=== PATIENT | male | born 1955 | race African-American/Black ===

== ENCOUNTER 2022-04-03 16:07 | Emergency (ER) | payer OTHER ==
[~2022-04-03] VITALS: Ht 175.3 cm; Wt 64.4 kg
--- NOTE | 2022-04-03 16:07 | NUR ---
Alina polo in [facility] - 04/03/22 at 1823 by [email or web address] TRINA FROM [facility], TAKEN TO [facility] 3
--- NOTE | 2022-04-03 16:07 | NUR ---
TRINA FROM [facility], TAKEN TO ER BED 2
[2022-04-03 16:26] VITALS: BP 87/55
[2022-04-03 17:59] LABS: BASOPHILS # (AUTO) 0.1 K/uL (0.00-0.22); BASOPHILS % (AUTO) 0.8 % (0.0-2.0); EOSINOPHILS # (AUTO) 0.2 K/uL (0-0.4); EOSINOPHILS % (AUTO) 2.6 % (0.0-4.0); HEMATOCRIT 33.3 % (36-52); HEMOGLOBIN 10.7 g/dL (12.0-18.0); LYMPHOCYTES # (AUTO) 0.9 K/uL (2.0-11.5); LYMPHOCYTES % (AUTO) 12.7 % (20.5-51.1); MEAN CORPUSCULAR HEMOGLOBIN 28 pg (27-31); MEAN CORPUSCULAR HGB CONC 32 g/dL (33-37); MEAN CORPUSCULAR VOLUME 85.8 fL (80-94); MONOCYTES # (AUTO) 0.8 K/uL (0.8-1.0); MONOCYTES % (AUTO) 11.4 % (1.7-9.3); NEUTROPHILS % (AUTO) 72.5 % (42.2-75.2); PLATELET COUNT (AUTO) 580 K/uL (140-450); RED BLOOD CELL COUNT(AUTO) 3.88 MIL/uL (4.20-6.10); RED CELL DISTRIBUTION WIDTH 17.3 % (11.6-13.7); WHITE BLOOD COUNT (AUTO) 6.9 K/uL (4.8-10.8)
[2022-04-03 18:28] LABS: ALBUMIN 2.4 g/dL (3.4-5.0); ANION GAP 13.3 (8-16); ASPARTATE AMINOTRANSFERASE 14 U/L (15-37); CARBON DIOXIDE 27.9 mmol/L (21-32); CHLORIDE 98 mmol/L (98-107); CREATININE 1.4 mg/dL (0.6-1.3); GFR ARICAN-AMERICAN 65 mL/min (>90); GLUCOSE 92 mg/dL (74-106); POTASSIUM 4.2 mmol/L (3.5-5.1); SODIUM SERUM 135 mmol/L (136-145); TOTAL BILIRUBIN 0.4 mg/dL (0.0-1.0); UREA NITROGEN, BLOOD 19 mg/dL (7-18)
--- NOTE | 2022-04-03 19:45 | NUR ---
Patient appears to be resting comfortably in bed. Vital Signs within normal limits. Respirations even and unlabored. Waiting on transport
--- NOTE | 2022-04-03 21:20 | NUR ---
PATIENT PROVIDED FOOD UPON REQUEST
--- NOTE | 2022-04-04 00:43 | NUR ---
Patient appears to be resting comfortably in bed. Vital Signs within normal limits. Respirations even and unlabored. Waiting for transportation.
--- NOTE | 2022-04-04 03:12 | NUR ---
Patient appears to be resting comfortably in bed. Vital Signs within normal limits. Respirations even and unlabored.
--- NOTE | 2022-04-04 05:00 | NUR ---
Patient appears to be resting comfortably in bed. Respirations even and unlabored.
--- NOTE | 2022-04-04 08:53 | NUR ---
REPORT CALLED TO CHRISTOPHER READ SPOKE WITH CHIQUIS ENGLISH.
--- NOTE | 2022-04-04 09:06 | NUR ---
PT RESTING IN BED, OFFERED JELLO AND JUICE, PT DOES NOT WISH TO EAT AT THIS TIME.
--- NOTE | 2022-04-04 09:27 | NUR ---
SPOKE WITH GAUDENCIO DIAMOND SIZER AND SORTER REGARDING DIAGNOSIS AND RECOMENDATIONS FOR PATIENT.
--- NOTE | 2022-04-04 12:39 | NUR ---
Alina polo in [facility] - 04/04/22 at 1314 by [email or web address] JOVANY SWABBED AND WALKED TO LAB.
--- NOTE | 2022-04-04 13:04 | NUR ---
PT RESTING IN NO APPARENT DISTRESS, BREATHING EVEN AND UNLABORED, VSS, WILL CONTINUE TO MONITOR
[2022-04-04 14:20] VITALS: BP 91/51
--- NOTE | 2022-04-04 14:20 | NUR ---
Patient discharged with v/s stable. Written and verbal after care instructions given and explained. Patient verbalized understanding. Ambulance Transport with to [facility]. All questions addressed prior to discharge. Advised to follow up with PMD.
== END 2022-04-04 14:20 ==
LOC: MED 16:07
DX: R41.82 Altered mental status, unspecified (principal); J44.9 Chronic obstructive pulmonary disease, unspecified; Z88.0 Allergy status to penicillin; Z86.718 Personal history of other venous thrombosis and embolism
CPT/HCPCS: 36415; 70450; 80053; 83605; 84484; 85025; 93005; 99285

== ENCOUNTER 2022-05-05 14:13 | Inpatient (IN) | payer OTHER ==
[~2022-05-05] VITALS: Ht 170.2 cm; Wt 70.8 kg
[2022-05-05 14:26] VITALS: BP 92/60
--- NOTE | 2022-05-05 14:26 | NUR ---
67 y/o male biba from [facility] for abnormal labs. per amr, facility reports pt CEA and PSA were elevated with lack of appetite. a&ox3, unable to ambulate baseline. denies nausea, vomiting, diarrhea. skin is pink/warm/dry. a&o x3 to name, and place, gcs 13 baseline, does not ambulate. lungs clear bl, heart rate even and regular. pt denies dysuria, hematuria, urinary frequency or retention. pt denies any fever, cp, sob, or cough at this time. pt states pain is 0/10 at this time. patient positioned for comfort. hob elevated. bed down. ermd made aware of pt. pmh: copd, scoliosis, osteoarthritis, fx of first lumbar vertebra, muscel wastin atrophy, acute pancreatitis allergy: penicillin med: see list
--- NOTE | 2022-05-05 14:30 | NUR ---
unable to establish iv access, ermd notified at this time. us guided set up at bedside
[2022-05-05] MEDS ORDERED: NACL 0.9% 1,000 ML IV ONE ×2 (14:50→16:00)
--- NOTE | 2022-05-05 14:55 | NUR ---
X-Ray at bedside.
[2022-05-05 15:07] LABS: BASOPHILS % (AUTO) 0.4 % (0.0-2.0); EOSINOPHILS # (AUTO) 0.3 K/uL (0-0.4); HEMATOCRIT 29.2 % (36-52); HEMOGLOBIN 9.5 g/dL (12.0-18.0); LYMPHOCYTES # (AUTO) 0.6 K/uL (2.0-11.5); LYMPHOCYTES % (AUTO) 6.6 % (20.5-51.1); MEAN CORPUSCULAR HEMOGLOBIN 27 pg (27-31); MEAN CORPUSCULAR HGB CONC 33 g/dL (33-37); MEAN CORPUSCULAR VOLUME 82.2 fL (80-94); MONOCYTES % (AUTO) 10.6 % (1.7-9.3); NEUTROPHILS # (AUTO) 7.1 K/uL (1.8-7.7); NEUTROPHILS % (AUTO) 79.4 % (42.2-75.2); PLATELET COUNT (AUTO) 400 K/uL (140-450); RED BLOOD CELL COUNT(AUTO) 3.56 MIL/uL (4.20-6.10); RED CELL DISTRIBUTION WIDTH 17.1 % (11.6-13.7)
[2022-05-05 15:20] LABS: ANION GAP 16.5 (8-16); CARBON DIOXIDE 22.7 mmol/L (21-32); CREATININE 1.5 mg/dL (0.6-1.3); POTASSIUM 5.2 mmol/L (3.5-5.1)
[2022-05-05 15:22] LABS: PROTHROMBIN TIME 19.9 secs (10.8-13.4)
[2022-05-05 15:26] LABS: ALBUMIN 1.9 g/dL (3.4-5.0); TOTAL BILIRUBIN 0.4 mg/dL (0.0-1.0)
[2022-05-05] MEDS ORDERED: LEVOFLOXACIN 750 MG/D5W PREMIX 150 ML IV ONE (16:05)
[2022-05-05] MEDS ORDERED: ACET-9527 PO (16:14)
[2022-05-05] MEDS ORDERED: MULT-2171 PO (16:14)
[2022-05-05] MEDS ORDERED: ACET-1182 PO (16:14)
[2022-05-05] MEDS ORDERED: RIVA20TA PO (16:14)
[2022-05-05] MEDS ORDERED: SENN-212 PO (16:14)
[2022-05-05] MEDS ORDERED: MIRT-92 PO (16:14)
[2022-05-05] MEDS ORDERED: CHOL500040 PO (16:14)
[2022-05-05] MEDS ORDERED: ASCO500T95 PO (16:14)
[2022-05-05] MEDS ORDERED: POLY17PD46 PO (16:14)
[2022-05-05] MEDS ORDERED: DOCU-299 PO (16:14)
[2022-05-05] MEDS ORDERED: ZINC50TA76 PO (16:14)
[2022-05-05] MEDS ORDERED: guaiFENesin DM 200/20 MG-10 ML 10 ML UDC PO PRN (16:15)
[2022-05-05] MEDS ORDERED: POTASSIUM CHLORIDE 10 MEQ TABER PO PRN (16:15)
[2022-05-05] MEDS ORDERED: ACETAMINOPHEN 325 MG TAB PO PRN (16:15)
[2022-05-05] MEDS ORDERED: DOCUSATE SODIUM 100 MG GELCAP PO PRN (16:15)
[2022-05-05] MEDS ORDERED: ONDANSETRON 4 MG/2 ML VIAL IM/IVP PRN (16:15)
[2022-05-05] MEDS ORDERED: ALBUTEROL SULFATE/IPRATROPIU 3 ML SOL IH PRN (16:20)
[2022-05-05] MEDS: NACL 0.9% 1,000 ML IV SCH (16:20)
--- NOTE | 2022-05-05 17:25 | NUR ---
# 15 FR Urinary catheter inserted utilizing sterile technique. Immediate return of 20 ml urine noted. Urine sample collected and sent to lab. Pt tolerated procedure.
[2022-05-05 17:45] VITALS: BP 100/61
--- NOTE | 2022-05-05 17:45 | NUR ---
RECEIVED PT FROM ED VIA BLAISE, BEDSIDE REPORT FROM CHRISTIAN. PT AWAKE, ALERT, ABLE TO MAKE NEEDS KNOWN A/OX2 WITH PERIODS OF FORGETFULNESS. BREATHING SYMMETRICAL ON 2L NC. DENIES PAIN. PT CONTRACTED ON BILATERAL LOWER EXTREMITY. LAC 20G WITH NS AT 100CC/HR. PER REPORT ROCEPHIN AND LEVAQUIN NOT GIVEN. ROCEPHIN ADMINISTERED ORDERED. SISTER ZUHAIR AT BEDSIDE. NOTED PT WITH NON BLANCHABLE REDNESS ON RIGHT BUTTOCK, SKIN INTACT OTHERWISE. CALL LIGHT WITHIN REACH AND EDUCATED HOW TO USE CALL LIGHT. ALL SAFETY MEASURES IN PLACE. [id number]/61 PR94 RR16 TEMP98.0 O2 SAT 95%
[2022-05-05 17:51] LABS: APPEARANCE,URINE CLEAR (CLEAR); BILIRUBIN,URINE 2+ (NEGATIVE); BLOOD, URINE 1+ (NEGATIVE); COLOR,URINE YELLOW (YELLOW); LEUKOCYTE ESTERASE ,URINE TRACE (NEGATIVE); NITRITE, URINE NEGATIVE (NEGATIVE); UGLUCOSE NEGATIVE (NEGATIVE)
--- NOTE | 2022-05-05 18:02 | NUR ---
Patient will be admitted to care of Milady ALVAREZ. Admitted to Telemetry. Will go to room 112A. Belongings list completed. Report to Sandra SIM.
[2022-05-05 18:12] LABS: WBC,URINE 0-5 /HPF (0-5)
--- NOTE | 2022-05-05 19:30 | NUR ---
ENDORSED PT TO CABLE DISPATCHER NURSE FOR CONTINUITY OF CARE
[2022-05-05 19:41] LABS: CHOL/HDL RATIO 4.8 (1-4.5); FREE T4 (FREE THYROXINE) 1.18 ng/dL (0.76-1.46); MAGNESIUM 2.2 mg/dL (1.8-2.4); THYROID STIMULATING HORMONE 10.85 uIU/mL (0.34-3.74)
[2022-05-05 20:00] VITALS: BP 95/51
--- NOTE | 2022-05-05 20:00 | NUR ---
RECEIVED PATIENT FROM MORNING SHIFT NURSE. PATIENT IS AOX4 AND BED BOUND. NO S/S OF RESPIRATORY DISTRESS WAS NOTED. PATIENT HAS IV ON LEFT AC AT GAUGE 20 RUNNING WITH NS AT RATE OF 100 ML/HR. CALL LIGHT PLACED WITHIN REACH. ALL SAFETY MEASURES ARE IMPLEMENTED.
[2022-05-05 20:13] LABS: PHOSPHORUS 3.3 mg/dL (2.5-4.9)
[2022-05-05] MEDS: ALBUTEROL SULFATE/IPRATROPIU 3 ML SOL IH SCH (20:13)
[2022-05-06] VITALS: BP 108/73
[2022-05-06] MEDS ORDERED: levoFLOXacin 750 MG TAB ONE (00:55)
[2022-05-06] MEDS ORDERED: LEVOFLOXACIN 750 MG/D5W PREMIX 150 ML IV ONE (00:56)
--- NOTE | 2022-05-06 01:10 | NUR ---
LEVAQUIN TABLET NOT GIVEN, LEVAQUIN IVPB INSTEAD.
--- NOTE | 2022-05-06 02:00 | NUR ---
PATIENT INSERTED URINARY CONDOM CATHETER FOR URINE CULTURE SPECIMEN. CALL LIGHT PLACED WITHIN REACH. ALL SAFETY MEASURE WAS IMPLEMENTED.
[2022-05-06] MEDS: NACL 0.9% 1,000 ML IV SCH ×3 (02:15→22:15)
[2022-05-06 04:00] VITALS: BP_SYST 90; BP_SYST 98; BP_DIAS 56; BP_DIAS 65
--- NOTE | 2022-05-06 04:00 | NUR ---
PATIENT IS ON SLEEP, WITH 2L OF NC. CHEST RISE AND FALL WAS NOTED. CALL LIGHT WITHIN REACH. ALL SAFETY MEASURES IMPLEMENTED.
--- NOTE | 2022-05-06 07:18 | NUR ---
BEDSIDE ENDORSEMENT GIVEN TO AM NURSE FOR CONTINUITY OF CARE. PT STABLE.
[2022-05-06 07:22] LABS: BASOPHILS % (AUTO) 0.3 % (0.0-2.0); EOSINOPHILS # (AUTO) 0.3 K/uL (0-0.4); EOSINOPHILS % (AUTO) 2.9 % (0.0-4.0); HEMATOCRIT 25.8 % (36-52); HEMOGLOBIN 8.3 g/dL (12.0-18.0); LYMPHOCYTES # (AUTO) 0.6 K/uL (2.0-11.5); LYMPHOCYTES % (AUTO) 6.9 % (20.5-51.1); MEAN CORPUSCULAR HEMOGLOBIN 27 pg (27-31); MEAN CORPUSCULAR HGB CONC 32 g/dL (33-37); MEAN CORPUSCULAR VOLUME 82.4 fL (80-94); MONOCYTES # (AUTO) 0.9 K/uL (0.8-1.0); MONOCYTES % (AUTO) 10.1 % (1.7-9.3); NEUTROPHILS # (AUTO) 7.1 K/uL (1.8-7.7); NEUTROPHILS % (AUTO) 79.8 % (42.2-75.2); PLATELET COUNT (AUTO) 366 K/uL (140-450); RED BLOOD CELL COUNT(AUTO) 3.13 MIL/uL (4.20-6.10); RED CELL DISTRIBUTION WIDTH 17.3 % (11.6-13.7); WHITE BLOOD COUNT (AUTO) 8.9 K/uL (4.8-10.8)
--- NOTE | 2022-05-06 07:30 | NUR ---
RECEIVED REPORT FROM [facility] NURSE FOR CONTINUITY OF CARE. PATIENT IS AWAKE, ALERT AND VERBALLY RESPONSIVE. PT. IS O2 AT 2 L/NC. CHEST RISING AND FALLING WITH NO SOB, NO DISTRESS NOTED. ON DIE CUTTER DIAMOND. PT. HAS AN IV LAC WITH NS AT 100 CC/HR. ALL SAFETY MEASURES IN PLACE, CALL LIGHT WITHIN REACH. WILL CONTINUE TO MONITOR.
[2022-05-06 07:39] LABS: CREATININE 1.2 mg/dL (0.6-1.3); POTASSIUM 4.8 mmol/L (3.5-5.1)
[2022-05-06 07:51] LABS: ANION GAP 17.7 (8-16); CARBON DIOXIDE 20.1 mmol/L (21-32)
[2022-05-06 08:00] VITALS: BP 110/59
[2022-05-06] MEDS: ALBUTEROL SULFATE/IPRATROPIU 3 ML SOL IH SCH ×3 (08:00→19:38)
[2022-05-06 08:08] LABS: T4 (THYROXINE) 7.5 ug/dL (4.5-12.0)
[2022-05-06] MEDS: PANTOPRAZOLE 40 MG TABEC PO SCH (08:26)
--- NOTE | 2022-05-06 08:50 | NUR ---
PERI MEDICATION ADMINISTERED PER MD ORDER BY SHIVAM SIM. PT EDUCATED ON IMPORTANCE OF KEEPING NASAL CANNULA ON. IV PATENT RUNNING NS @100. ASSESSMENT COMPLETED. NO S/S OF DISTRESS. NO URINE OUTPUT AT THIS TIME, CONDEMN CATH ON. ALL SAFETY MEASURES IN PLACE, CALL LIGHT WITHIN REACH. WILL CONTINUE TO MONITOR.
--- NOTE | 2022-05-06 09:00 | NUR ---
ALL AM MEDS WAS GIVEN ORDERED AND WELL TAKEN. PT. IS AWAKE, ABLE TO FOLLOW COMMAND, BREATH SOUNDS CLEAR ON ALL LUNG [place]. ABD IS SOFT AND NON-DISTENDED WITH HYPOACTIVE BOWEL SOUNDS NOTED ON ALL 4 QUADRANTS. CONT. ON 02 AT 2 L/NC. FAMILY MEMBER IS AT BEDSIDE AND VERY SUPPORTIVE. IN STABLE CONDITION.
--- NOTE | 2022-05-06 09:06 | NUR ---
PATIENT HAS BEEN SCREENED AND CATEGORIZED HIGH NUTRITION RISK. PATIENT WILL BE SEEN WITHIN 1-2 DAYS OF ADMISSION. REFERRAL RECEIVED FOR REFUSE TO EAT OVER THREE DAYS, UNINTENTIONAL WEIGHT LOSS AND DECREASED APPETITE AMY [address]
--- NOTE | 2022-05-06 10:00 | NUR ---
DR. Dago RAYMOND CAME SEEN AND EXAMINED THE PATIENT WITH NEW ORDER RECEIVED AND CARRIED OUT. SISTER ZUHAIR TALKED TO DR. Dago RAYMOND THIS MORNING REGARDING PATIENT LATEST CONDITIONS.
[2022-05-06] MEDS: LEVOTHYROXINE SODIUM 100 MCG VIAL IV SCH (11:08)
[2022-05-06 12:00] VITALS: BP 94/60
--- NOTE | 2022-05-06 13:34 | NUR ---
DR RAYMOND REQUESTED CONSENT FOR CONTRAST TO BE FAXED, CONSENT FORM HAS BEEN FAXED TO HIS OFFICE. PENDING SIGNATURE.
--- NOTE | 2022-05-06 13:46 | NUR ---
ASSESSED IV DUE TO IV PUMP BEEPING. IV IS PATENT AND INTACT, NEW IV FLUIDS HAVE BEEN STARTED. REASSESSED BLOOD PRESSURE. PT AT BASELINE.
--- NOTE | 2022-05-06 14:30 | NUR ---
RESENT CONSENT FORM TO DR YOLY RAYMOND, COMPLETE CONFIRMATION OBTAINED OF FORM BEING SENT AND PLACED IN CHART. PENDING DR RAYMOND FAX
--- NOTE | 2022-05-06 14:40 | NUR ---
05/06/22 RD INITIAL ASSESSMENT COMPLETED PLEASE REFER TO NUTRITION ASSESSMENT UNDER CARE ACTIVITY FOR ESTIMATED NUTRITIONAL NEEDS. 1. RECOMMEND MECHANICAL SOFT DIET 2. RECOMMEND ENSURE STRAWBERRY TID PER RD PROTOCOL 3. MONITOR PO INTAKE 4. RD TO FOLLOW-UP 2-3 DAYS, HIGH RISK AMY [address]
[2022-05-06 16:00] VITALS: BP 97/68
--- NOTE | 2022-05-06 16:39 | NUR ---
DC PLANNING SW ATTEMPTED TO MEET WITH PATIENT AT BEDSIDE TO GATHER COLLATERAL INFORMATION HOWEVER, PATIENT WAS IN PAIN. RN REVIEW CAME TO CHANGE PATIENTS POSITION. PATIENT PROVIDED SW WITH PERMISSION TO CALL SISTER TO GATHER COLLATERAL INFORMATION. SW ATTEMPTED TO CONTACT PATIENTS SISTER, ZUHAIR ROSARIO, HOWEVER WAS UNSUCCESSFUL. SW TO FOLLOW UP. Addendum: 05/07/22 at 1553 by Dahlia BLANKENSHIP LATE ENTRY PATIENT IS A 67 YR OLD MALE ADMITTED FROM [facility] WITH DECREASED PO INTAKE AND WEIGHT LOSS FOR 1 MONTH. SW MET WITH PATIENT AT BEDSIDE TO GATHER COLLATERAL INFORMATION. PATIENT IDENTIFIED LIVING AT THE ADDRESS LISTED, [facility]. PATIENT REPORTED EMERGENCY CONTACT ZUHAIR ROSARIO (SISTER)[phone]. PATIENT DECLINED HAVING AD IN PLACE AND DECLINED PACKET OFFERED BY SW. RN REVIEW CAME TO OBSERVE PATIENT, PATIENT HAD TO BE SWITCHED SIDES AND WAS IN PAIN. PATIENT PROVIDED SW PERMISSION TO CONTACT SISTER TO GATHER COLLATERAL INFORMATION HE WAS IN PAIN. SW ATTEMPTED TO OUTREACH TO SISTER, HOWEVER, WAS UNSUCCESSFUL AT REACHING. SW GATHERED COLLATERAL INFORMATION FROM . CM CONFIRMED THAT PATIENT IS IN TOTAL CARE WITH [facility]. PATIENTS SISTER AND MOTHER ARE HIGHLY INVOLVED IN PATIENTS CARE. PATIENT IS PRIMARILY BED BOUND AND PATIENT REQUIRES ASSISTANCE WITH ALL ADL'S. REPORTS THAT SISTER REPORTED PATIENT HAS LOST A SIGNIFICANT AMOUNT OF WEIGHT 20-30 POUNDS WITHIN THIS LAST MONTH TENTATIVE PLAN IS FOR PATIENT TO RETURN TO [facility] ONCE MEDICALLY STABLE. SW TO FOLLOW NEEDED.
--- NOTE | 2022-05-06 17:21 | NUR ---
PT HAS BEEN TAKEN TO CT IN STABLE CONDITION WITH 2L NC.
--- NOTE | 2022-05-06 17:48 | NUR ---
RADIOLOGY CALLED STATING PT IS TOO CONTRACTED TO OBTAIN CT OF PELVIS AND ABDOMEN. WAS ABLE TO OBTAIN CT OF CHEST AND HEAD. PAGED AND NOTIFIED MD REGARDING THIS.
--- NOTE | 2022-05-06 18:03 | NUR ---
DR. RAYMOND STATED TO DO THE BEST YOU CAN DURING CT SCAN.
--- NOTE | 2022-05-06 18:12 | NUR ---
PT BROUGHT BACK FROM RADIOLOGY IN STABLE CONDITION, PLACED BACK ON 2L NC. PT HAS BEEN CLEANED AND REPOSITIONED. PT URINATED THROUGH CONDEMN CATH. SHEETS CHANGED AND NEW CONDEMN CATH PLACED. IV ABX ADMINISTERED PER MD ORDER. IV IS PATENT AND INTACT. ALL SAFETY MEASURES IN PLACE, CALL LIGHT WITHIN REACH, WILL CONTINUE TO MONITOR.
--- NOTE | 2022-05-06 18:49 | NUR ---
PATIENT REMAIN STABLE ENTIRE SHIFT. CONT. ON 02 AT 2 L/NC. NO S/SX OF PAIN OR DISCOMFORT. CT SCAN OF HEAD, CHEST, ABDOMEN AND PELVIS DONE. ALL NEEDS MET AND ANTICIPATED. ALL SAFETY MEASURES PLACE AT ALL TIMES. CALL LIGHT WITHIN REACH. BED IN LOW POSITION. WILL ENDORSE TO NOC NURSE.
--- NOTE | 2022-05-06 19:20 | NUR ---
RECEIVED REPORT FROM AM NURSE. PATIENT IS AWAKE, ALERT ON 2L NC TOLERATING WELL. NO SOB NOTED. RESPIRATION EVEN UNLABORED. NO COMPLAINTS OF PAIN. IVF NS INFUSING AT 100 ML/HR. ALL SAFETY MEASURES ARE IN PLACE. CALL LIGHT WITHIN REACH. WILL CONTINUE TO MONITOR PT.
[2022-05-06 20:00] VITALS: BP 97/52
--- NOTE | 2022-05-06 22:20 | NUR ---
IV LINE WAS INFILTRATED. STARTED A NEW PERIPHERAL IV ON THE LEFT UPPER ARM WITH GOOD BACK FLOW OF BLOOD.
--- NOTE | 2022-05-06 23:35 | NUR ---
ROUNDED PATIENT, PT SLEEPING. OBSERVED CHEST RISE AND FALL SYMMETRICALLY. NO ACUTE DISTRESS NOTED. SAFETY MEASURES IN PLACE. CALL LIGHT WITHIN REACH.
[2022-05-07] VITALS: BP 99/53
[2022-05-07] MEDS: NACL 0.9% 1,000 ML IV SCH ×2 (03:14→08:30)
[2022-05-07 04:00] VITALS: BP 93/51
--- NOTE | 2022-05-07 06:26 | NUR ---
PATIENT WAS STABLE DURING THE SHIFT. NO SOB. NO FEVER. WILL ENDORSE TO THE NEXT SHIFT
[2022-05-07 06:57] LABS: BASOPHILS % (AUTO) 0.4 % (0.0-2.0); EOSINOPHILS # (AUTO) 0.2 K/uL (0-0.4); HEMATOCRIT 27.7 % (36-52); HEMOGLOBIN 8.8 g/dL (12.0-18.0); LYMPHOCYTES # (AUTO) 0.6 K/uL (2.0-11.5); LYMPHOCYTES % (AUTO) 7.8 % (20.5-51.1); MEAN CORPUSCULAR HEMOGLOBIN 27 pg (27-31); MEAN CORPUSCULAR HGB CONC 32 g/dL (33-37); MEAN CORPUSCULAR VOLUME 84.2 fL (80-94); MONOCYTES # (AUTO) 0.7 K/uL (0.8-1.0); MONOCYTES % (AUTO) 8.8 % (1.7-9.3); NEUTROPHILS # (AUTO) 6.6 K/uL (1.8-7.7); PLATELET COUNT (AUTO) 295 K/uL (140-450); RED BLOOD CELL COUNT(AUTO) 3.29 MIL/uL (4.20-6.10); RED CELL DISTRIBUTION WIDTH 17.9 % (11.6-13.7); WHITE BLOOD COUNT (AUTO) 8.1 K/uL (4.8-10.8)
[2022-05-07] MEDS: ALBUTEROL SULFATE/IPRATROPIU 3 ML SOL IH SCH ×3 (07:00→22:16)
[2022-05-07 07:10] LABS: ANION GAP 20.9 (8-16); CARBON DIOXIDE 17.9 mmol/L (21-32); CREATININE 1.2 mg/dL (0.6-1.3); POTASSIUM 4.8 mmol/L (3.5-5.1)
--- NOTE | 2022-05-07 07:30 | NUR ---
RECEIVED REPORT FROM CAPTION WRITER NURSE FOR CONTINUITY OF CARE, PT IS RESTING IN BED ON 2L NC WITH CHEST RISING AND FALLING EVEN AND UNLABORED. PT ALERT AND VERBALLY RESPONSIVE. REPORTS ALL NEEDS ARE MET. ON TELE MONITOR SHOWING SINUS TACH OF 103. ALL SAFETY MEASURES IN PLACE, CALL LIGHT WITHIN REACH. WILL CONTINUE TO MONITOR.
[2022-05-07 08:00] VITALS: BP 92/62
--- NOTE | 2022-05-07 08:13 | NUR ---
PT BLOOD PRESSURE IS 92/67, NOTIFIED MD. ORDER OF 1L NS BOLUS ORDERED AND TO CONTINUE TO MONITOR. WILL FOLLOW ORDER OUT.
[2022-05-07] MEDS: LEVOTHYROXINE SODIUM 100 MCG VIAL IV SCH (08:29)
[2022-05-07] MEDS: PANTOPRAZOLE 40 MG TABEC PO SCH (08:29)
[2022-05-07] MEDS ORDERED: MIDODRINE 5 MG TAB PO SCH (09:00)
--- NOTE | 2022-05-07 09:14 | NUR ---
PT. WITH LOW DILAN SCALE AT HIGH RISK, CONTINUE TO FOLLOW PRESSURE INJURY PREVENTION INTERVENTIONS. -POSITIONING: TURN AND REPOSITION PATIENT Q 2H OR SOONER USE PILLOWS TO KEEP BONY PROMINENCES FROM DIRECT CONTACT WITH SURFACES USE REPOSITIONING WEDGES TO PROVIDE 30-DEGREE ANGLE FOR SIDE LYING POSITIONS OFFLOADING OR FOAM DRESSING TO ALL TUBING TO PREVENT MEDICAL DEVICES RELATED PRESSURE INJURY -RE-EVALUATING AND MANAGING INCONTINENCE MONITOR SKIN CONDITION DURING POSITION CHANGE DO NOT MASSAGE REDNESS, BONY PROMINENCES FREQUENT ELIZABETH-CARE AND PROVIDE BARRIER CREAMS PRN IF SOILING MOISTURE CONTROL BY OFFER BED SMILEY/URINAL /ABSORBENT PAD TO WICK AND HOLD MOISTURE KEEP SKIN DRY AND PROTECT FROM FRICTION -MANAGE FRICTION/SHEAR/MOBILITY KEEP HOB AT THE LOWEST LEVEL OF ELEVATION NO MORE THAN 30 DEGREE UNLESS OTHERWISE CONTRAINDICATED USE LIFT SHEET OR TRANSFER DEVICE TO MOVE PATIENT AND PREVENT LATERAL SHEER. PROTECT HEELS, ELBOWS BONY PROMINENCES WITH SKIN BERRIES OR FOAM DRESSING IF EXPOSED TO FRICTION OFFLOAD BILATERAL HEELS BY PLACING PILLOWS UNDER CALVES AT ALL TIMES, UNLESS OTHERWISE CONTRAINDICATED -PRESSURE REDISTRIBUTION SURFACE THERAPY SULMA ISOFLEX MATTRESS -NUTRITION: PLEASE FOLLOW RD RECOMMENDATIONS AND OFFER NUTRITION SUPPLEMENTS IF ORDERED. PLEASE CONTACT WOUND CARE NURSE FOR ANY QUESTION AND CHANGE OF WOUND CONDITION.
--- NOTE | 2022-05-07 09:22 | NUR ---
DC PLANNING: THE PATIENT ADMITTED FROM [facility] WITH DECREASED PO INTAKE AND WEIGHT LOSS X 1 MONTH. CONSULTS ORDERED WITH PULMONOLOGY, NEPHROLOGY AND WOUND CARE. NA+ 130, CO220.1, UN 27, CR 1.2. STARTED ON MIDRDRINE, DUONEBS, ROCEPHIN AND IVF'S. REPORT FROM [facility] OF ELEVATED CEA AND PSA. CM SPOKE WITH THE PATIENTS MOTHER AND SISTER ZUHAIR AT BEDSIDE. THEY STATE THEY ARE CONCERNED ABOUT LACK OF PO INTAKE AND WEIGHT LOSS AND WOULD LIKE W/U TO FOCUS ON THIS. THE PATIENT IS WEAK AND CONTRACTURED AND IS CURRENTLY TOTAL CARE. THEY ALSO EXPRESSED CONCERN ABOUT THE PATIENTS ELEVATED CEA AND WOULD LIKE A CA R/O. CT OF CHEST SHOWS RLL PARTIALLY NECROTIC MASS SUSPICIOUS FOR MALIGNANCY WELL MEDIASTINAL LYMPHADENOPATHY AND LIVER AND BILATERAL ADRENAL MASSES, ALL LIKELY MALIGNANT. CM WILL SPEAK WITH THE ATTENDING ABOUT FINDINGS AND COMMUNICATION WITH FAMILY. CM WILL FOLLOW UP WITH FAMILY REGARDING PLAN OF CARE. Addendum: 05/09/22 at 1227 by Rosa Maria Javed DC PLANNING: PER THE ATTENDING MD THE FAMILY HAS DECIDED TO PROCEED WITH EGD AND G-TUBE PLACEMENT IF POSSIBLE RELATED TO POOR PO INTAKE. ONCOLOGY CONSULT PENDING WITH DR LAZO, PULMONOLOGY NOTES BIBASILAR ATELECTASIS AND RIGHT SIDED LUNG MASS WITH MEDIASTINAL INVOLVEMENT AND LIVER MET. NEPHROLOGY ALSO FOLLOWING, CR INCREASED TO 1.4 WITH SUSPICION OF PRE-RENAL DAIN, CONTINUE IVF'S. B/P THIS MORNING , HE CONTINUES ON MIDODRINE AND ROCEPHIN IV. THE PLAN AT THIS TIME IS FOR THE PATIENT TO RETURN TO [facility] TRANSPORT WILL BE USED. CM WILL FOLLOW.
[2022-05-07] MEDS: DEXT 5% /NACL 0.9% 1,000 ML IV SCH ×2 (09:32→22:27)
--- NOTE | 2022-05-07 10:56 | NUR ---
AT ROUGHLY 0830 1L OF NS WAS STARTED ON PT. AT ROUGHLY 0933, MIDODIRNE WAS ADMINISTERED PER MD ORDER. AT 1000 BLOOD PRESSURE WAS 107/75. AT 1045 BLOOD PRESSURE WAS REASSESSED AND 95/62. NOTIFIED MD REGARDING HYPOTENSION, MD ORDER INCREASE IN FLUIDS TO 90ML, CONSULT WITH DR SEYMOUR, CONTINUE TO MONITOR AND INFORM MD IF MAP CONTINUES TO BE LESS THAN 65.
[2022-05-07 12:00] VITALS: BP 94/55
--- NOTE | 2022-05-07 13:00 | NUR ---
PT HAS BEEN REPOSTIONED AND ASSESSED. PT IS ALERT AND VERBALLY RESPONSIVE. REPORTS ALL NEEDS ARE MET. ALL SAFETY MEASURES IN PLACE, CALL LIGHT WITHIN REACH WILL CONTINUE TO MONITOR.
--- NOTE | 2022-05-07 15:54 | NUR ---
SISTER AT BEDSIDE, ANSWERED ALL OF SISTERS QUESTIONS. PT IS STABLE IN BED. DR SEYMOUR STATED PT BP IS LIKELY BASELINE
[2022-05-07 16:00] VITALS: BP 95/55
--- NOTE | 2022-05-07 17:49 | NUR ---
IVPB ROCEPHIN CONTINUES VIA R UPPER ARM PERIPHERAL SITE. IV ACCESS PATENT & SITE FREE OF SIGNS OF INFECTION. PATIENT VERBALIZES COMFORT & DENIES PAIN.ALL SAFETY MEASURES IN PLACE. CALL LIGHT WITHIN REACH.
--- NOTE | 2022-05-07 19:00 | NUR ---
ALL NEEDS HAVE BEEN MET THROUGHOUT SHIFT, PT WILL BE ENDORSED TO COMPENSATION PROGRAMS MANAGER NURSE.
--- NOTE | 2022-05-07 19:04 | NUR ---
PAGED DR RAYMOND REGARDING SISTER'S CONCERN REGARDING PATIENT'S MOBILITY, AND NEED FOR PT & OT.
--- NOTE | 2022-05-07 19:30 | NUR ---
Received patient hand off from day nurse. Checked in on patient. Patient is alert & oriented x 3-4. Patient is on 2L nasal canula, and is bedbound. Left upper arm 24g IV. Patient had not eaten his dinner yet; Patient is laying on right side and does not want to be moved onto left side. Patient appears to be contracted and is incontinent. Patient states that he's fine, but appears to be annoyed. Call light is within reach, and all safety measures are in place.
[2022-05-07 20:00] VITALS: BP 90/68
--- NOTE | 2022-05-07 21:30 | NUR ---
Checked in on patient at 2029. Dextrose/NaCl was still running, no need to change. Patient was laying on right side watching television. When asked how he was doing, he stated he was fine, still appeared to be annoyed, so I let patient continue watching show.
--- NOTE | 2022-05-07 23:30 | NUR ---
Hung new Dextrose/NaCl at 2227. Patient was still watching television and stated that he did not need anything. Blood pressure was assessed and was 90/68; patient stated that he was not feeling dizzy and denied any pain; it was determined that blood pressure would be reassessed in an hour to determine if intervention was needed.
[2022-05-08] VITALS: BP 96/51
--- NOTE | 2022-05-08 01:31 | NUR ---
PT CHANGED AND REPOSITIONED. PT TOLERATED WELL. PT WANTED TO BE TURNED ON HIS RIGHT SIDE AGAIN. NO DISTRESS NOTED.ALL PRECAUTIONS IN PLACE.CALL LIGHT WITHIN REACH. WILL CONTINUE TO MONITOR.
--- NOTE | 2022-05-08 02:00 | NUR ---
Patient is refusing turn. Remaining on right side. Resurface bed ordered for patient per morning shift.
[2022-05-08 04:00] VITALS: BP 92/50
--- NOTE | 2022-05-08 04:05 | NUR ---
Patient is awake; tried to pull self out of bed, but was unable to do so (0315). Spoke with patient about the importance of staying in bed, so as not to fall and hurt self; was able to convince patient to stay in bed after long conversation. Attempted to give patient by mouth midodrine in applesauce; however, patient refused all attempts to give medication. BP currently 80/49. Doctor Ramon is being contacted for IV alternative medication.
[2022-05-08] MEDS: MIDODRINE 5 MG TAB PO PRN ×2 (04:30→23:38)
--- NOTE | 2022-05-08 06:00 | NUR ---
Looked in on patient. Patient was awake and watching television. Patient was polite, greeting me as I entered and turned on his light for his remote as I started operating the vitals machine, for which I thanked him. Blood pressure was checked and was 87/48. The patient asked if it was still low, I informed him it was and that we would continue to monitor. He said okay and turned his light off as I exited the room.
[2022-05-08 07:12] LABS: BASOPHILS % (AUTO) 0.3 % (0.0-2.0); EOSINOPHILS # (AUTO) 0.2 K/uL (0-0.4); EOSINOPHILS % (AUTO) 2.6 % (0.0-4.0); HEMATOCRIT 25.5 % (36-52); HEMOGLOBIN 8.2 g/dL (12.0-18.0); LYMPHOCYTES # (AUTO) 0.5 K/uL (2.0-11.5); LYMPHOCYTES % (AUTO) 6.5 % (20.5-51.1); MEAN CORPUSCULAR HEMOGLOBIN 27 pg (27-31); MEAN CORPUSCULAR HGB CONC 32 g/dL (33-37); MONOCYTES # (AUTO) 0.6 K/uL (0.8-1.0); MONOCYTES % (AUTO) 8.1 % (1.7-9.3); NEUTROPHILS # (AUTO) 5.7 K/uL (1.8-7.7); NEUTROPHILS % (AUTO) 82.5 % (42.2-75.2); PLATELET COUNT (AUTO) 265 K/uL (140-450); RED BLOOD CELL COUNT(AUTO) 3.08 MIL/uL (4.20-6.10); RED CELL DISTRIBUTION WIDTH 17.7 % (11.6-13.7)
[2022-05-08 07:14] LABS: ANION GAP 13.1 (8-16); CREATININE 1.2 mg/dL (0.6-1.3); POTASSIUM 4.1 mmol/L (3.5-5.1)
[2022-05-08] MEDS: ALBUTEROL SULFATE/IPRATROPIU 3 ML SOL IH SCH ×2 (07:15→20:13)
--- NOTE | 2022-05-08 07:29 | NUR ---
Endorsed care of patient to day shift nurse. Patient is currently stable.
--- NOTE | 2022-05-08 07:30 | NUR ---
RECEIVED REPORT FROM MEDICAL OFFICE RECEPTIONIST NURSE FOR CONTINUITY OF CARE. PATIENT AWAKE NO DISTRESS NOTED. ABLE TO RESPONDS VERBALLY. RESPIRATION EVEN AND NOT LABORED NO SHORTNESS OF BREATH. PATIENT ON 2L/MIN VIA NASAL CANULA O2 BUT KEEP ON REMOVING IT. ENCOURAGE NOT TO REMOVE AND EXPLAIN THE RISK AND BENEFIT. ALL SAFETY MEASURE IN PLACE.
[2022-05-08 08:00] VITALS: BP 95/59
--- NOTE | 2022-05-08 08:30 | NUR ---
AT BED SIDE.
--- NOTE | 2022-05-08 08:58 | NUR ---
DR. SEYMOUR AT BED EXAMINED THE PATIENT AND SPOKE TO THAT AT BED SIDE.
--- NOTE | 2022-05-08 09:15 | NUR ---
DR. RAYMOND AT BED SIDE.
[2022-05-08] MEDS: LEVOTHYROXINE SODIUM 100 MCG VIAL IV SCH (09:33)
[2022-05-08] MEDS: PANTOPRAZOLE 40 MG TABEC PO SCH (09:36)
--- NOTE | 2022-05-08 09:51 | NUR ---
GIVEN PANTOPRAZOLE MEDICATION AND RN GAVE IVP LEVOTHYROXINE. PATIENT STILL NOTED EATING AND FAMILY ASKING IF WE CAN PUT BACK IV HYDRATION LEFT MESSAGE TO DR. RAYMOND.
--- NOTE | 2022-05-08 10:08 | NUR ---
DR. RAYMOND RESPONDED BACK AND ORDER D5 NS AT 100/HOUR.
[2022-05-08] MEDS: DEXT 5% /NACL 0.9% 1,000 ML IV SCH ×2 (10:41→20:15)
[2022-05-08] MEDS: HYDROcodone/APAP 7.5/325 MG 1 TAB PO PRN ×2 (10:43→17:18)
--- NOTE | 2022-05-08 10:45 | NUR ---
CALLED [employer] TO BRING MACHINE FOR WOUND BED.
--- NOTE | 2022-05-08 11:07 | NUR ---
SISTER CALLED AGAIN ASKING FOR WOUND BED AND SAID THAT MEDICATION IS NOT WORKING YET I INFORM HER IT'S ONLY 15 MINUTE GIVE HIM MORE TIME FOR MEDICATION TO WORK.
--- NOTE | 2022-05-08 11:21 | NUR ---
MACHINE FOR WOUND BED PUT ON PROPERLY WORKING.
[2022-05-08 12:00] VITALS: BP 97/77
--- NOTE | 2022-05-08 12:41 | NUR ---
SPONGE BATH, CHANGE AND REPOSITIONED. GOOD SKIN CARE PROVIDED.
--- NOTE | 2022-05-08 13:00 | NUR ---
RESIDENT TURN HIMSELF TO HIS RIGHT SIDE AGAIN AFTER FEW MINUTES THAT WE PUT HIM ON HIS LEFT SIDE. EXPLAINED THAT NEED TO REPOSITION
--- NOTE | 2022-05-08 13:53 | NUR ---
DR. MAGAÑA AT BED SIDE SPOKE TO SISTER REGARDING THE PROGNOSIS FOR PATIENT.
--- NOTE | 2022-05-08 14:21 | NUR ---
05/08/22 RD FOLLOW UP COMPLETED PLEASE REFER TO NUTRITION ASSESSMENT UNDER CARE ACTIVITY FOR ESTIMATED NUTRITIONAL NEEDS. 1. CONTINUE MECHANICAL SOFT DIET TOLERATED 2. CONTINUE ENSURE STRAWBERRY TID PER RD PROTOCOL 3. MONITOR PO INTAKE 4. RD TO FOLLOW-UP 2-3 DAYS, HIGH RISK AMY [address]TM[address]
--- NOTE | 2022-05-08 14:50 | NUR ---
PT AT BED SIDE DOING THERAPY FOR PATIENT. I ASSISTED PT TO PUT PATIENT TO HIS LEFT SIDE EXPLAINED THE IMPORTANCE OF TURING AND NOT ON HIS RIGHT SIDE ONLY. PUT 2 PILLOW AND WEDGE ON HIS RIGHT SIDE. ALL SAFETY MEASURE IN PLACE.
[2022-05-08 16:00] VITALS: BP 96/66
--- NOTE | 2022-05-08 16:08 | NUR ---
Patient turn on his right side again.
--- NOTE | 2022-05-08 17:49 | NUR ---
NOTED PATIENT WITH NO URINE OR BOWEL MOVEMENT SINCE 7AM. PALPATED ABDOMEN SOFT, NOT DISTENDED. DENIES PAIN OR DISCOMFORT ON ABDOMEN NO NAUSEA OR VOMITING NOTED. USED BLADDER SCAN ON LOWER ABDOMEN ONLY NOTED BELOW 200 OF URINE IN THE BLADDER.
--- NOTE | 2022-05-08 19:29 | NUR ---
GAVE REPORT TO DIRECTOR OF AVIATION NURSE FOR CONTINUITY OF CARE.
[2022-05-08 20:00] VITALS: BP 90/55
--- NOTE | 2022-05-08 20:00 | NUR ---
RECEIVED PATIENT REPORT FROM AM SHIFT NURSE FOR CONTINUITY OF CARE. PATIENT ASLEEP, AROUSABLE BY NAME,BEDBOUND, DAUGHTER AT BEDSIDE. ON 2L O2 VIA NC, BREATHING EQUAL AND UNLABORED. SKIN WARM, DRY AND INTACT. IV ON LEFT UPPER ARM G22, INFUSING D5NS @ 100ML/HR.PT MED SURG, BP WAS 90/55.DENIES PAIN.ALL PRECAUTIONS IN PLACE. CALL LIGHT WITHIN REACH. WILL CONTINUE TO MONITOR.
--- NOTE | 2022-05-08 20:30 | NUR ---
IV FLUID CHANGED.INFUSING WELL. PT RESTING ON BED, DENIES PAIN. ALL NEEDS MET. WILL CONTINUE TO MONITOR.
--- NOTE | 2022-05-08 22:30 | NUR ---
PT ASLEEP. VISIBLE CHEST RISE AND FALL NOTED, BREATHING EQUAL AND UNLABORED.2L O2 VIA NC.O2 SAT 93%. ALL PRECAUTIONS IN PLACE. WILL CONTINUE TO MONITOR.
--- NOTE | 2022-05-08 23:00 | NUR ---
PT COMPLAINED OF HEADACHE. PRN TYLENOL GIVEN. WILL CONTINUE TO MONITOR. Addendum: 05/08/22 at 2302 by Anuel Tay RN NOTE ERROR. THIS IS FOR PATIENT 106A
[2022-05-09] VITALS (16 sets, daily range): BP systolic 51–188; BP diastolic 25–124
--- NOTE | 2022-05-09 02:35 | NUR ---
PT ASLEEP.CHEST RISE AND FALL NOTED, BREATHING EQUAL AND UNLABORED. NO S/SX OF DISTRESS NOTED. ALL PRECAUTIONS IN PLACE. WILL CONTINUE TO MONITOR.
[2022-05-09] MEDS: DEXT 5% /NACL 0.9% 1,000 ML IV SCH ×2 (06:15→16:56)
[2022-05-09 07:13] LABS: BASOPHILS % (AUTO) 0.1 % (0.0-2.0); EOSINOPHILS # (AUTO) 0.1 K/uL (0-0.4); EOSINOPHILS % (AUTO) 1.9 % (0.0-4.0); HEMATOCRIT 27.6 % (36-52); HEMOGLOBIN 8.6 g/dL (12.0-18.0); LYMPHOCYTES # (AUTO) 0.6 K/uL (2.0-11.5); MEAN CORPUSCULAR HEMOGLOBIN 26 pg (27-31); MEAN CORPUSCULAR HGB CONC 31 g/dL (33-37); MEAN CORPUSCULAR VOLUME 84.8 fL (80-94); MONOCYTES # (AUTO) 0.5 K/uL (0.8-1.0); MONOCYTES % (AUTO) 8.1 % (1.7-9.3); NEUTROPHILS # (AUTO) 5.3 K/uL (1.8-7.7); NEUTROPHILS % (AUTO) 80.9 % (42.2-75.2); PLATELET COUNT (AUTO) 211 K/uL (140-450); RED BLOOD CELL COUNT(AUTO) 3.26 MIL/uL (4.20-6.10); WHITE BLOOD COUNT (AUTO) 6.6 K/uL (4.8-10.8)
--- NOTE | 2022-05-09 07:24 | NUR ---
PT IS STABLE. NO ACUTE EVENTS THROUGHOUT THE NIGHT. ALL NEEDS MET.NO S/SX OF DISTRESS NOTED.DENIES PAIN. ALL PRECAUTIONS IN PLACE. CALL LIGHT WITHIN REACH. WILL ENDORSE TO AM SHIFT NURSE.
[2022-05-09] MEDS: ALBUTEROL SULFATE/IPRATROPIU 3 ML SOL IH SCH ×3 (07:41→21:05)
[2022-05-09 07:42] LABS: ANION GAP 15.5 (8-16); CREATININE 1.4 mg/dL (0.6-1.3); POTASSIUM 4.5 mmol/L (3.5-5.1)
[2022-05-09] MEDS: LEVOTHYROXINE SODIUM 100 MCG VIAL IV SCH (08:27)
[2022-05-09] MEDS: PANTOPRAZOLE 40 MG TABEC PO SCH (08:28)
[2022-05-09] MEDS: MIDODRINE 5 MG TAB PO PRN (13:25)
[2022-05-09] MEDS ORDERED: NACL 0.9% 1,000 ML IV SCH (13:55)
--- NOTE | 2022-05-09 14:00 | NUR ---
RECEIVED PATIENT FROM [facility] [[email or web address]]. REPORT RECEIVED.
--- NOTE | 2022-05-09 14:01 | NUR ---
pt transferred to ICU pr dr barnes order c\o low bp 67\25 ,iv bolus started in the unit, the sister at bed side. the warehouse lead and the nurse escorted the patient . given the ICU nurse the report.[email or web address]
--- NOTE | 2022-05-09 14:30 | NUR ---
PATIENT RESPONDS TO VERBAL STIMULI. OPENS EYES. SPEECH SLIGHTLY GARBLED. SISTER AT BEDSIDE. PUPILS EQUAL AND REACTIVE TO LIGHT. LOWER EXTREMITIES CONTRACTED. HEART SOUNDS REGULAR, DISTANT. PULSES PALPABLE BUT WEAK. BLOOD PRESSURE LABILE. SBP 65-180'S. NS BOLUS INFUSING TO LEFT UPPER ARM #24G IV. INSERTED #22G RIGHT WRIST. IVF'S MOVED TO RIGHT WRIST. POSTERIOR LUNG SOUNDS CLEAR. O2 AT 3L/NC. SAO2 88-94%. ACTIVE BOWEL SOUNDS IN ALL QUADRANTS.
--- NOTE | 2022-05-09 14:45 | NUR ---
CONTACTED DR. Nu HUNTER TO DISCUSS PICC LINE. DR. HUNTER APPROVED PLACEMENT OF PICC LINE.
[2022-05-09] MEDS ORDERED: NOREPINEPHRINE 4 MG in DEXTROSE 5% 250 ML IV PRN (14:55)
--- NOTE | 2022-05-09 15:00 | NUR ---
PICC LINE CONSENT OBTAINED. ORDER FOR LEVOPHED OBTAINED BUT NOT STARTED. CRAIG CATHETER PLACED. CLEAR MELODIE URINE RETURN.
--- NOTE | 2022-05-09 17:45 | NUR ---
DR. LAZO, ONCOLOGIST HERE TO SEE PATIENT. CALLED SISTER AND DISCUSSED PATIENT CONDITION. NO BIOPSY OF MASS RECOMMENDED. SISTER WILL TALK TO FAMILY TO DETERMINE CODE STATUS AND COMFORT MEASURES AND CALL BACK WHEN DECISION IS MADE.
[2022-05-09] MEDS: MIDODRINE 5 MG TAB PO SCH ×2 (18:00→21:11)
--- NOTE | 2022-05-09 19:00 | NUR ---
SBP 60'S, TITRATING LEVOPHED UP. CURRENTLY AT 7MCG/MIN.
--- NOTE | 2022-05-09 19:30 | NUR ---
RIGHT UPPER ARM PICC INSERTED. SBP 60. LEVOPHED INCREASED TO 9MG/MIN.
--- NOTE | 2022-05-09 19:35 | NUR ---
REPORT GIVEN TO EVAPORATOR HELPER RNMADHAVI.
--- NOTE | 2022-05-09 20:24 | NUR ---
PHONE CALL FROM PTS SISTER ZUHAIR ROSARIO, THA, SHE SAID THAT THE FAMILY HAS DECIDED TO CHANGE CODE STATUS TO DNR, WITNESSED BY CHIQUIS LANIER.MESSAGE LEFT TO DR RAYMOND,AWAITING REPLY
--- NOTE | 2022-05-09 21:22 | NUR ---
PHONE CALL BACK TO ZUHAIR, PTS SISTER ZUHAIR ALMAZAN SAID FULL DNR, DO NOT INTUBATE/VENT; NO CPR NO MEDS. DR RAYMOND ALSO MESSAGE BACK,ORDERED TO PLACE PT ON DNR
[2022-05-09] MEDS: ZOLPIDEM 5 MG TAB PO PRN ×2 (23:02→23:04)
--- NOTE | 2022-05-09 23:55 | NUR ---
PT GIVEN ATIVAN 1MG FOR SEVERE AGITATION. SHE'S THRASHING ABOUT THE BED, THROWING HER LEGS OVER THE SIDE OF THE BED. SHE IS PULLING AT HER TUBING AND CRAIG CATH. SHE IS NOW AT A RASS-3. Addendum: 05/10/22 at 0333 by Agency 11 CHIQUIS RN THE ABOVE NOTE IS ENTERED ON THE WRONG PT
[2022-05-10] VITALS (17 sets, daily range): BP systolic 44–140; BP diastolic 22–63
[2022-05-10] MEDS ORDERED: NOREPINEPHRINE 4 MG/4 ML VIAL IV ONE ×2 (00:25→06:24)
[2022-05-10] MEDS: DEXT 5% /NACL 0.9% 1,000 ML IV SCH ×2 (01:29→12:51)
[2022-05-10] MEDS: MIDODRINE 5 MG TAB PO SCH (05:00)
[2022-05-10 06:51] LABS: CARBON DIOXIDE 12.9 mmol/L (21-32); POTASSIUM 3.9 mmol/L (3.5-5.1)
--- NOTE | 2022-05-10 07:30 | NUR ---
RECEIVED REPORT FROM NIGHT RN FOR CONTINUITY OF CARE.
[2022-05-10] MEDS ORDERED: AZITHROMYCIN 250 MG TAB PO SCH (07:45)
[2022-05-10] MEDS: ALBUTEROL SULFATE/IPRATROPIU 3 ML SOL IH SCH ×2 (07:51→13:00)
--- NOTE | 2022-05-10 08:15 | NUR ---
PT A&OX1, PERRL. ON 5L NC, TACHYPNEIC. SR ON MONITOR. SEVERAL LIQUID DIARRHEA BMS. PLACED FLEXISEAL. CRAIG TO GRAVITY. R WRIST 22G IV IN PLACE. D/C L SHOULDER IV 24G. PICC PATENT IN NICOLASA, INFUSING LEVO AND D5NS. EDEMA NOTED IN LOWER EXTREMITIES. 4+ IN R LOWER LEG, 3+ IN L LOWER LEG. DARK BLUE DISCOLORATION NOTED ON FEET, WHICH EXTENDS TO ABOVE ANKLES. NO PULSE PALPABLE OR FOUND WITH DOPPLER. LEVO WAS AT 23MCG/MIN, DECREASED TO 13MCG/MIN D/T LOWER EXTREMITIES. LAB CALLED WITH [facility] 6.8. DR. PINO NOTIFIED OF FINDINGS. SAFETY PRECAUTIONS IN PLACE. CALL LIGHT WITHIN REACH. BED AT LOWEST POSITION.
[2022-05-10] MEDS: PANTOPRAZOLE 40 MG TABEC PO SCH (09:00)
--- NOTE | 2022-05-10 09:04 | NUR ---
ORDER RECEIVED TO TRANSFUSE [address] UN[address] OF BLOOD PER [address]. PINO.
--- NOTE | 2022-05-10 09:20 | NUR ---
SEEN AND EXAMINED BY DR. PION. ORDERS RECEIVED.
--- NOTE | 2022-05-10 09:30 | NUR ---
TRIED TO GIVE PT PO PROTONIX. PT UNABLE TO SWALLOW PILL OR WATER. ORDER TO BE CHANGED TO IV INSTEAD OF PO PER DR. PINO.
[2022-05-10] MEDS: LEVOTHYROXINE SODIUM 100 MCG VIAL IV SCH (09:33)
--- NOTE | 2022-05-10 10:00 | NUR ---
SEEN AND EXAMINED BY DR. JON. ORDERS RECEIVED.
[2022-05-10 11:01] LABS: BASOPHILS % (AUTO) 0.3 % (0.0-2.0); EOSINOPHILS # (AUTO) 0.2 K/uL (0-0.4); EOSINOPHILS % (AUTO) 2.8 % (0.0-4.0); HEMATOCRIT 21.7 % (36-52); LYMPHOCYTES # (AUTO) 0.6 K/uL (2.0-11.5); LYMPHOCYTES % (AUTO) 9.5 % (20.5-51.1); MEAN CORPUSCULAR HEMOGLOBIN 27 pg (27-31); MEAN CORPUSCULAR HGB CONC 31 g/dL (33-37); MEAN CORPUSCULAR VOLUME 86.2 fL (80-94); MONOCYTES # (AUTO) 0.3 K/uL (0.8-1.0); MONOCYTES % (AUTO) 5.2 % (1.7-9.3); NEUTROPHILS # (AUTO) 5.2 K/uL (1.8-7.7); NEUTROPHILS % (AUTO) 82.2 % (42.2-75.2); PLATELET COUNT (AUTO) 103 K/uL (140-450); RED BLOOD CELL COUNT(AUTO) 2.52 MIL/uL (4.20-6.10); RED CELL DISTRIBUTION WIDTH 17.8 % (11.6-13.7); WHITE BLOOD COUNT (AUTO) 6.4 K/uL (4.8-10.8)
[2022-05-10] MEDS ORDERED: VASOPRESSIN 20 UNITS in NACL 0.9% 250 ML IV SCH ×4 (11:05)
[2022-05-10 11:14] LABS: HEMOGLOBIN 6.7 g/dL (12.0-18.0)
--- NOTE | 2022-05-10 12:00 | NUR ---
TELEPRINTER INSTALLER AT BEDSIDE.
--- NOTE | 2022-05-10 12:22 | NUR ---
MOTHER AND SISTER AT BEDSIDE.
[2022-05-10] MEDS ORDERED: metroNIDAZOLE 500 MG/NS PREMIX 100 ML IV SCH (13:00)
[2022-05-10] MEDS ORDERED: HYDROCORTISONE NA SUCC 100 MG/2 ML VIAL IV SCH (13:00)
[2022-05-10] MEDS ORDERED: metroNIDAZOLE 250 MG/NS PREMIX 50 ML IV SCH (13:00)
--- NOTE | 2022-05-10 15:45 | NUR ---
A&OX0, PUPILS NONREACTIVE TO LIGHT. TACHYPNEIC, SHALLOW, AGONAL BREATHING PATTERN. LABILE BP. SBP MID 40'S-140'S. EXTREMITIES COOL TO TOUCH. DARK BLUE DISCOLORATION WORSENING ON FEET AND ANKLES. BLUEISH DISCOLORATION NOTED ON FINGERTIPS WELL. EDEMA 4+ BILATERAL LOWER EXTREMITIES. LEVOPHED RUNNING AT 6MCG/MIN, VASOPRESSIN IS AT 0.03UNITS/MIN VIA NICOLASA PICC. FLEXISEAL DRAINING LIQUID BROWN DIARRHEA. F/C TO GRAVITY DRAINING 5ML FOR THE ENTIRE SHIFT SO FAR. AWAITING FAMILY'S DECISION ON WHETHER OR NOT TO PLACE PT ON COMFORT/PALLIATIVE CARE. SAFETY PRECAUTIONS IN PLACE.
[2022-05-10] MEDS ORDERED: MORPHINE SULFATE 100 MG in NACL 0.9% 90 ML IV SCH (16:00)
--- NOTE | 2022-05-10 16:02 | NUR ---
FAMILY HAS DECIDED TO PLACE PT ON COMFORT/PALLIATIVE CARE. NOTIFIED DR. PINO. ORDERS TO D/C ALL MEDS AND BEGIN MORPHINE SULPHATE CONTINUOUS DRIP RECEIVED.
--- NOTE | 2022-05-10 18:28 | NUR ---
TIME OF 1734. ER DR. MCKEON PRONOUNCED . NOTIFIED WAREHOUSE SPECIALIST'S OFFICE, DEPUTY KAMINI PATEL STATED THEY NO LONGER NEED NOTIFICATION UNLESS FOR TRAUMATIC DEATHS. BODY RELEASED BY WAREHOUSE SPECIALIST. NOTIFIED [facility] (CASE #[id number]) OF . PT NOT A CANDIDATE FOR ORGAN DONATION. WASTED 98ML OF MORPHINE SULFATE CONT. DRIP.
--- NOTE | 2022-05-10 19:00 | NUR ---
FAMILY STILL DECIDING ON MORTUARY. THEY WILL CALL AND GIVE INFORMATION TO MACHINE CLOTH MEASURER.
--- NOTE | 2022-05-10 20:30 | NUR ---
daughter came in to say her goodbye, typewriter operator automatic asked her if they already have mortuary, she said they are still looking for one.
--- NOTE | 2022-05-10 20:45 | NUR ---
phone call to marisa, pts dpoa and sister, left message to call customs entry writer back for mortuary
--- NOTE | 2022-05-10 22:05 | NUR ---
PHONE CALL FROM ZUHAIR, PTS SISTER AND DPOA; EXPLAINED TO HER THAT WE DON'T HAVE A MORGUE HERE AND THAT WE HAVE A CONTRACTED MORTUARY [employer] ; SHE SAID SHE WILL CALL IN THE MORNING FOR MORTUARY BUT THAT SHE IS NOT AUTHORIZING US TO SEND THE BODY TO THE SAID MORTUARY, TOLD ZUHAIR THAT BOTTLE INSPECTOR HAS TO TRANSFER THE BODY TO ANOTHER ROOM HERE IN THE HOSPITAL, SHE VERBALIZED UNDERSTANDING.DEQUAN SIM SECURITY ARCHITECT AWARE
--- NOTE | 2022-05-10 23:30 | NUR ---
BODY MOVED TO ROOM 128
[2022-05-11] MEDS ORDERED: PANTOPRAZOLE 40 MG INJ VIAL IVP SCH (09:00)
[2022-05-11] MEDS ORDERED: AZITHROMYCIN 250 MG TAB PO SCH (09:00)
== END 2022-05-10 19:00 | DRG 871 ==
LOC: MED 14:13 → MTU 16:48 → MIC 05-09 13:50
PROVIDERS: ADMIT Family Medicine; ATTEND Family Medicine
PROC: 02HV33Z Insertion of Infusion Device into Superior Vena Cava, Percutaneous Approach (ICD-10-PCS; principal; 2022-05-09)
PROC: B548ZZA Ultrasonography of Superior Vena Cava, Guidance (ICD-10-PCS; 2022-05-09)
DX: A41.9 Sepsis, unspecified organism (principal); E43 Unspecified severe protein-calorie malnutrition; G93.41 Metabolic encephalopathy; N17.0 Acute kidney failure with tubular necrosis; J69.0 Pneumonitis due to inhalation of food and vomit; N39.0 Urinary tract infection, site not specified; E87.1 Hypo-osmolality and hyponatremia; J44.0 Chronic obstructive pulmonary disease with (acute) lower respiratory infection; C77.9 Secondary and unspecified malignant neoplasm of lymph node, unspecified; J44.1 Chronic obstructive pulmonary disease with (acute) exacerbation; E87.5 Hyperkalemia; M41.9 Scoliosis, unspecified; E86.0 Dehydration; E78.5 Hyperlipidemia, unspecified; M19.90 Unspecified osteoarthritis, unspecified site; D63.8 Anemia in other chronic diseases classified elsewhere; Z20.822 Contact with and (suspected) exposure to COVID-19; R74.01 Elevation of levels of liver transaminase levels; E03.9 Hypothyroidism, unspecified; K74.60 Unspecified cirrhosis of liver; K75.9 Inflammatory liver disease, unspecified; K59.09 Other constipation; E27.9 Disorder of adrenal gland, unspecified; Z88.0 Allergy status to penicillin; Z87.891 Personal history of nicotine dependence; Z74.01 Bed confinement status
CPT/HCPCS: 36415; 36600; 70470; 71045; 71270; 80048; 80053; 81001; 82150; 82533; 82550; 82803; 83036; 83605; 83690; 83735; 83880; 84100; 84436; 84439; 84443; 84479; 84484; 85025; 85610; 85730; 86886; 86900; 86901; 86920; 87040; 87081; 87086; 93005; 93925; 94640; 96360; 96361; 97110; 97163-GP; 99291; J0696; J1720; J1956; J2270; J3490; J7030; J7060; Q0092; Q9967